=== PATIENT | male | born 1970 | race Caucasian/White ===

== ENCOUNTER 2024-02-08 21:52 | Inpatient (IN) | payer OTHER, SELFPAY ==
--- NOTE | ~2024-02-08 | US_ITS ---
EXAMINATION: US hip asp inj w image LT DATE: 02/09/2024 12:17 INDICATION: Left hip effusion. TECHNIQUE: The procedure including the risks, benefits, and alternatives was discussed with the patie nt. Risks discussed included bleeding and infection. The patient understood the risks and agreed to p roceed. The skin overlying the left hip was prepped and draped in usual sterile fashion. Anesthetic was administered with 1% lidocaine subcutaneously. An 18 gauge spinal needle was inserted into the l eft hip joint under continuous sonographic guidance, a fluid was aspirated. The entry site was cleane d and dressed. There were no immediate complications. FINDINGS: Ultrasound images demonstrate the needle in the left hip joint. IMPRESSION: 1. Ultrasound-guided needle aspiration of the left hip yielding 4 mL opaque, geronimo-red fluid. Reviewed, dictated and finalized at location A. IMPRESSION: 1. Ultrasound-guided needle aspiration of the left hip yielding 4 mL opaque, ta n-red fluid.
--- NOTE | ~2024-02-08 | CT_ITS ---
EXAMINATION: CT hip LT w con DATE: 02/10/2024 10:01 INDICATION: Left hip abscess. TECHNIQUE: Computed tomography (CT) of the left hip was performed with 100 mL Omnipaque 350 intraveno us contrast. Automated exposure control and iterative reconstruction technique were employed. The dos e-length product was 824.14 mGy-cm. COMPARISON: Left hip radiographs 02/09/2024 FINDINGS: There is a healed fracture of proximal left femur with internal fixation with antegrade int ramedullary karen and femoral head/neck screw. There are extensive erosions of the left hip joint with pathologic fracture of the medial wall of left acetabulum. There is a left hip joint effusion. Pocket s of fluid with calcifications are noted in the soft tissues and muscles around the left hip includin g the left gluteus medius and gluteus minimus muscles, left iliopsoas muscle, and left hip flexor mus cles. IMPRESSION: 1. Septic arthritis of the left hip with pathologic fracture of medial wall of left acetabulum. 2. Myositis and abscesses involving many of the muscles around the left hip. Reviewed, dictated and finalized at location E.
--- NOTE | ~2024-02-08 | XR_ITS ---
EXAMINATION: XR hip LT 2V w AP pelvis DATE: 02/09/2024 11:30 INDICATION: Left hip pain. TECHNIQUE: An anteroposterior view of the pelvis on 2 radiographs and 2 views of left hip on 3 radiog raphs were obtained. COMPARISON: Left hip radiographs 01/25/2024 FINDINGS: There is an old healed fracture of proximal left femur with internal fixation with long int ramedullary karen and femoral head/neck screw. There are severe erosions at the left hip joint. There i s moderate right hip osteoarthritis. IMPRESSION: 1. Severe erosions of the left hip joint suspicious for septic arthritis. 2. Moderate right hip osteoarthritis. Reviewed, dictated and finalized at location A.
--- NOTE | ~2024-02-08 | XR_ITS ---
EXAMINATION: XR fluoroscopy no charge DATE: 02/09/2024 12:31 INDICATION: Left hip pain and arthritis. TECHNIQUE: A single fluoroscopic view of the left hip was obtained by myself. Fluoroscopy exposure ti me was 0.1 minutes. The total number of images was 1. FINDINGS: There is internal fixation of proximal left femur. There are erosions of the left hip joint . IMPRESSION: 1. Left hip arthritis suspicious for septic arthritis. The patient could not roll to the required pos ition for joint aspiration under fluoroscopy. The procedure was performed under ultrasound. Reviewed, dictated and finalized at location A. IMPRESSION: 1. Left hip arthritis suspicious for septic arthritis. The patient could not ro ll to the required position for joint aspiration under fluoroscopy. The procedu re was performed under ultrasound.
[2024-02-08 22:10] VITALS: BMI 25.5
[2024-02-08 22:11] VITALS: BP 110/69; PULSE 72; RESP 18; TEMP 36.9; O2SAT 100
--- NOTE | 2024-02-08 22:21 | ADMGEN ---
This patient, Rajat Ordoñez, was admitted to 3 [facility] Surg Room 320-01. Patient/family oriented to hospital policies and general routines including ID bracelet, bed and alarms, visiting hours, pain management, procedures, bathroom and other care routines, personal items, smoking policy, room service/diet, and visiting hours. Information on how to activate the Rapid Response Team has been discussed. Patient/Family are encouraged to report perceived risks to care and to ask questions if they do not understand what they are told or what they should do.
--- NOTE | 2024-02-08 22:42 | PM.IMHP ---
H&P: HPI History of Present Illness Date/Time: 02/08/24 22:42 Chief Complaint: leg swelling Narrative: this is a 53-year-old male with past medical history significant for tobacco dependence, alcohol dependence, chronic hyponatremia, left hip hardware malfunction, patient presents to the emergency room due to bilateral lower extremity swelling, fatigue, shortness of breath. He comes as a transfer from outside facility preliminary workup there was significant for hemoglobin of 6.6 patient is in the midst of some workup when he was found to have low hemoglobin and has been transferred to our facility for further evaluation management and treatment EXAMINATION: XR hip LT 2V w AP pelvis DATE: 02/09/2024 11:30 INDICATION: Left hip pain. TECHNIQUE: An anteroposterior view of the pelvis on 2 radiographs and 2 views of left hip on 3 radiographs were obtained. COMPARISON: Left hip radiographs 01/25/2024 FINDINGS: There is an old healed fracture of proximal left femur with internal fixation with long intramedullary karen and femoral head/neck screw. There are severe erosions at the left hip joint. There is moderate right hip osteoarthritis. IMPRESSION: 1. Severe erosions of the left hip joint suspicious for septic arthritis. 2. Moderate right hip osteoarthritis. Review of Systems Review of Systems: shortness of breath, bilateral lower extremity swelling Constitutional: Constitutional: Reports fatigue and Reports lethargy Eyes: Eyes: Denies change in vision Cardiovascular: Cardiovascular: Denies chest pain, Reports leg edema and Reports dyspnea Respiratory: Respiratory: Denies cough Gastrointestinal: Gastrointestinal: Denies abdominal pain, Denies melena, Denies hematochezia, Denies coffee ground emesis and Denies hematemesis Genitourinary: Genitourinary: Denies dysuria Musculoskeletal: Musculoskeletal: Reports arthralgias (left hip) Neurologic: Denies focal weakness and Denies Sensory deficit (Neuro) Psychiatric: Psychiatric: Reports no additional psychiatric complaints and Reports as per HPI Endocrine: Endocrine: Denies cold intolerance, Denies heat intolerance, Denies polyphagia, Denies polydipsia, Denies polyuria and Denies palpitations Hematologic/Lymphatic: Hematologic/Lymphatic: Reports no additional hematologic/lymphatic complaints and Reports as per HPI Allergic/Immunologic: Allergic/Immunologic: Reports no additional allergic/immunologic complaints and Reports as per HPI [facility] Past Medical History Medical History (Updated 02/10/24 @ 14:56 by You Bah MD) NSAID long-term use Occult blood positive stool Septic arthritis of hip Social History Social History Smoking packs per day: 1 Smoking cigarettes per day: 20.0 Years smoked: 30 Smoking pack-years: 30.00 Smoking status: Former smoker Tobacco type: cigarettes Alcohol intake: former Substance use: current Substance use type: marijuana Do You Feel Safe in your Home?: Yes Lack of Transportation: No Lack of Food: Never True Current Housing: I Have Housing Concerned About Future Housing: No Difficulty Paying Gas/Electric Bills: No Difficulty Paying for Meds: No Currently Unemployed: No Education: Trade/Vocational Certificate Difficulty w/ Childcare or Family Care: No Spiritual care concerns: No Meds Home Medications and Allergies Home Medications Medication Instructions Recorded Confirmed Type acetaminophen 325 mg capsule 650 mg PO Q6H PRN Pain (Scale 02/08/24 02/08/24 History Score 1-3) albuterol sulfate 2.5 mg/3 mL 2.5 mg continuous nebulization 02/08/24 02/08/24 History (0.083 %) solution for nebulization Q4-6H PRN Shortness Of Breath Or Wheezing albuterol sulfate 90 mcg/actuation 2 puff inhalation Q4H 02/08/24 02/08/24 History aerosol inhaler citalopram 10 mg tablet 10 mg PO HS 02/08/24 02/08/24 History diclofenac sodium 75 mg 75 mg PO DAILY 02/08/24 02/08/24 History t
[2024-02-08] MEDS: MORPHINE SULFATE (*CRX) 2 MG/ML INJ IV PUSH (23:17)
[2024-02-08] MEDS: DEXTROSE 5%/0.45% SOD CHL 1,000 ML 100 ML IV CONT (23:17)
[2024-02-08] MEDS: traZODone HCL 50 MG TABLET PO (23:18)
[2024-02-08 23:21] LABS: Basophils Percent Auto 0.2 % (0.2-1.2); Eosinophils Absolute Auto 0.1 K/mm3 (0-0.3); Eosinophils Percent Auto 0.8 % (0-4.4); Hematocrit 26.2 % (42.0-52.0); Hemoglobin 8.7 g/dL (14.0-18.0); Immature Granulocyte Absolute 0.17 K/mm3 (0.00-0.031); Immature Granulocyte Percent A 1.4 % (0-0.5); Lymphocytes Absolute Auto 0.79 K/mm3 (0.9-3.2); Lymphocytes Percent Auto 6.7 % (18.3-44.2); Mean Corpuscular HGB Conc 33.2 g/dl (32-36); Mean Corpuscular Hemoglobin 30.7 pg (26-34); Mean Corpuscular Volume 92.6 fl (80-100); Monocytes Absolute Auto 1.2 K/mm3 (0.1-0.6); Monocytes Percent Auto 10.1 % (2.6-8.5); Neutrophils Absolute Auto 9.5 K/mm3 (1.3-6.7); Neutrophils Percent Auto 80.8 % (45.5-73.1); Platelet Count Result 810 k/mm3 (150-375); Red Blood Count 2.83 M/mm3 (4.6-6.20); Red Cell Distribution Width 15.9 % (11.5-14.5); White Blood Count 11.7 K/mm3 (4.5-10.0)
[2024-02-08 23:34] LABS: Anion Gap 12 mmol/L (4-12); Blood Urea Nitrogen 9 mg/dL (9-20); Calcium 7.2 mg/dL (8.4-10.2); Carbon Dioxide 20 mmol/L (22-30); Chloride 95 mmol/L (98-107); Estimated CRCL calculation 130 ml/min; Estimated Glomerular Filt Rate > 60; Glucose 117 mg/dL (65-110); Magnesium 2.5 mg/dL (1.6-2.3); Phosphorus 2.5 mg/dL (2.5-4.5); Potassium 3.7 mmol/L (3.4-5.0); Sodium 127 mmol/L (137-145)
[2024-02-08 23:39] LABS: INR 1.7; Prothrombin Time 20.7 Seconds (11.1-14.7)
[2024-02-08 23:40] LABS: Partial Thromboplastin Time 59.2 Seconds (22.3-36.8)
[2024-02-08] MEDS: CITALOPRAM HYDROBROMIDE 10 MG TABLET PO (23:45)
[2024-02-09] VITALS (8 sets, daily range): BP systolic 93–144; BP diastolic 58–73; PULSE 63–103; RESP 12–20; TEMP 36.8–37.2; O2SAT 100
--- NOTE | 2024-02-09 | ECHO_ITS ---
Patient Info Name: Rajat Ordoñez Age: 53 years : 1970 Gender: Male Ht: 71 in Wt: 183 lbs BSA: 2.05 m2 HR: 63 bpm BP: 111 / 70 mmHg Technical Quality: Good Exam Date: 02/09/2024 9:51 AM Exam Location: Echo Lab Patient Status: Inpatient Admit Date: 02/08/2024 Staff Ordering Physician: Will Sandoval MD Sterile Processing Tech: Kameron Giron RDCS Attending Provider: iTsh Rodríguez APRN Referring Physician: Lori BLACKWOOD; Exam Type: CA echo doppler color flow Study Info Indications - edema Complete two-dimensional, color flow and Doppler transthoracic echocardiogram is performed. Summary 1. Complete two-dimensional, color flow and Doppler transthoracic echocardiogram is performed. 2. Left ventricular chamber dimension is normal. 3. Left ventricular systolic function is normal, estimated at 55-60%. 4. The left ventricular diastolic function is grade I diastolic dysfunction. 5. E/e' 7 is not elevated. 6. Left atrial chamber dimension is mildly enlarged. 7. There is trace tricuspid valve regurgitation. 8. No pulmonary hypertension, estimated pulmonary arterial systolic pressure is 19 mmHg. 9. Normal inferior vena cava with >50% collapse upon inspiration consistent with elevated right atrial pressure, 10 mmHg. Left Ventricle E/e' 7 is not elevated. Left ventricular chamber dimension is normal. Left ventricular systolic function is normal, estimated at 55-60%. The left ventricular diastolic function is grade I diastolic dysfunction. Right Ventricle Right ventricular systolic function is normal and with normal TAPSE 2.6 cm. Right ventricular chamber dimension is normal. Left Atria Left atrial chamber dimension is mildly enlarged. Right Atria Right atrial chamber dimension is normal. Aortic Valve The aortic valve is trileaflet. There is no aortic valve stenosis. There is no aortic valve regurgitation. Pulmonic Valve There is no pulmonic regurgitation. Mitral Valve There is no mitral valve stenosis. There is no mitral valve regurgitation. Tricuspid Valve There is trace tricuspid valve regurgitation. No pulmonary hypertension, estimated pulmonary arterial systolic pressure is 19 mmHg. Pericardium/Pleural There is no pericardial effusion. Inferior Vena Cava Normal inferior vena cava with >50% collapse upon inspiration consistent with elevated right atrial pressure, 10 mmHg. Aorta The aortic root size at the sinus of Valsalva is normal. Left Ventricular Outflow Tract Name Value Normal LVOT 2D LVOT Diameter 2.1 cm LVOT Doppler LVOT Peak Gradient 8 mmHg LVOT Mean Gradient 5 mmHg LVOT VTI 30 cm LVOT VTI/AV VTI Ratio 1.1 LVOT Stroke Volume 103 ml LVOT CO 8.2 l/min LVOT CI 4.0 l/min/m2 Pulmonic Valve Name Value Normal PV Doppler
[2024-02-09] MEDS: oxyCODONE/ACETAMINOPHEN (*CRX) 5-325 MG TABLET 1 TABLET PO ×2 (02:01→12:22)
[2024-02-09] MEDS: TIZANIDINE HCL 4 MG TABLET PO ×3 (02:07→20:13)
[2024-02-09] MEDS: SODIUM CHLORIDE 1 GM TABLET PO ×3 (08:23→17:22)
[2024-02-09] MEDS: MORPHINE SULFATE (*CRX) 2 MG/ML INJ IV PUSH ×2 (08:32→14:05)
[2024-02-09 09:03] LABS: Basophils Percent Auto 0.3 % (0.2-1.2); Eosinophils Absolute Auto 0.1 K/mm3 (0-0.3); Eosinophils Percent Auto 0.8 % (0-4.4); Hematocrit 28.3 % (42.0-52.0); Hemoglobin 9.2 g/dL (14.0-18.0); Immature Granulocyte Absolute 0.13 K/mm3 (0.00-0.031); Immature Granulocyte Percent A 1.2 % (0-0.5); Lymphocytes Percent Auto 6.7 % (18.3-44.2); Mean Corpuscular HGB Conc 32.5 g/dl (32-36); Mean Corpuscular Hemoglobin 30.6 pg (26-34); Mean Platelet Volume 9.5 fl (7.4-10.4); Monocytes Absolute Auto 1.2 K/mm3 (0.1-0.6); Monocytes Percent Auto 11.2 % (2.6-8.5); Neutrophils Absolute Auto 8.3 K/mm3 (1.3-6.7); Neutrophils Percent Auto 79.8 % (45.5-73.1); Nucleated Red Blood Cells Perc 0.2 % (0.0-0.2); Platelet Count Result 834 k/mm3 (150-375); Red Blood Count 3.01 M/mm3 (4.6-6.20); Red Cell Distribution Width 15.9 % (11.5-14.5); White Blood Count 10.4 K/mm3 (4.5-10.0)
--- NOTE | 2024-02-09 09:16 | PM.CNOR ---
Assessment and Plan Assessment and plan (1) Osteoarthritis of left hip: Qualifiers: Osteoarthritis type: post-traumatic Qualified Code(s): M16.52 - Unilateral post-traumatic osteoarthritis, left hip Code(s): M16.12 - Unilateral primary osteoarthritis, left hip Status: Acute Assessment and Plan: Patient is a 53-year-old gentleman who was admitted for presumed GI bleed. The hospitalist service has admitted the patient and GI has been consulted. He was found to have a hemoglobin of 6.6 at the [facility] and was transferred to [facility] with a have I services available. Orthopedics was consulted for hardware failure problems with left hip. I located a disc with images in his chart which I brought down to x-ray be loaded onto PACS. I have been able to review the images that were loaded up on PACS. He had an intertrochanteric left hip fracture with subtrochanteric extension that was comminuted and displaced and appears well healed. There is a low trochanteric nail without distal interlocking stabilizing the fracture. 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 As such, the sliding hip screw is protruding significantly through the superior femoral head and is associated with erosive lucency in the superior acetabulum. Also, Infection would also be a consideration. He states that he has been having to use a walker this past month because the pain has become so severe. He has had no change in his left hips symptoms during this past 1 month. However, his left leg started swelling severely 1 week ago. He has duplex ultrasound was somewhat limited due to the swelling it says in the report but showed no evidence of DVT I see this as being reordered here. He has [employer] of [facility] a for insurance and he was evaluated at [facility] this past month and was scheduled for surgery to remove the karen and perform a hip replacement but he was notified last week that they do not take his insurance. He has also been evaluated at [facility] and they said that they would take his insurance and performed the surgery but that he would have to wait 1 year and that is why he subsequently went to the orthopedic surgeon at [facility]. Patient does have a new appointment to be seen by the [facility] specialist March 14. On exam he has painful limited range of motion of his left hip. There is no redness or swelling about the left hip the skin looks normal. He has a 3 in longitudinal incision extending proximal to the greater trochanter. He has pronounced diffuse edema in the left lower extremity markedly asymmetric compared to the right. I have discussed with him that total hip replacement with removal of femoral intramedullary karen is a more complex reconstruction. I utilized the direct anterior basement and I have wholesale agronomist with posterior approach hip replacement which is the approach that would best in cases such as his. Additionally, these cases are more complicated and usually utilize revision implants. As such I have recommended that he follow at [facility] with his previously scheduled appointment. Patient has been taking diclofenac 75 mg twice daily for his arthritis pain which may be the cause of his suspected GI bleeding. He does not drink alcohol smoke cigarettes anymore. His hemoglobin now is up to 9.2 white count 10.4 platelets [id number]. Patient will need medication to control his pain greater since he is no longer able to take the diclofenac. Has been taking Percocet as well. Use of the walker will be important for him as a means of reducing his hip pain. 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 We can ask physical therapy to work with him today. I have discomfort reports and a small him low in his chart state the following: Bilateral lower extremity
[2024-02-09 09:17] LABS: Alanine Aminotransferase 9 U/L (6-50); Albumin Level 3.3 g/dL (3.5-5.1); Alkaline Phosphatase 82 U/L (38-126); Anion Gap 10 mmol/L (4-12); Aspartate Amino Transferase 21 U/L (17-59); Bilirubin,Total 0.7 mg/dL (0.2-1.3); Blood Urea Nitrogen 8 mg/dL (9-20); Calcium 7.2 mg/dL (8.4-10.2); Carbon Dioxide 21 mmol/L (22-30); Chloride 97 mmol/L (98-107); Estimated CRCL calculation 154 ml/min; Estimated Glomerular Filt Rate > 60; Glucose 120 mg/dL (65-110); Potassium 3.9 mmol/L (3.4-5.0); Sodium 128 mmol/L (137-145)
[2024-02-09 11:10] LABS: CRP 16.8 mg/dL (<1.0)
[2024-02-09 11:20] LABS: Erythrocyte Sedimentation Rate > 140 mm/hr (0-20)
[2024-02-09 12:35] LABS: Procalcitonin 2.3 ng/mL
[2024-02-09 13:17] LABS: Appearance Synovial Fluid Turbid (Clear); Color Synovial Fluid Red (Colorless); Source Synovial Fluid Synovial fluid
[2024-02-09 13:18] LABS: Lymphocytes Synovial Fluid 4 %; Monocytes Synovial Fluid 1 %; Neutrophils Synovial Fluid 95 % (0-25)
[2024-02-09 13:22] LABS: Crystals Synovial Fluid None Seen (None Seen)
--- NOTE | 2024-02-09 13:51 | WPDGICN ---
Assessment and Plan Assessment and plan (1) Anemia, blood loss: Code(s): D50.0 - Iron deficiency anemia secondary to blood loss (chronic) Status: Acute Assessment and Plan: will assess with egd on Sunday probably PUD- he has been taking diclofenac daily for some time because hip pain never had scopes can not get colonoscopy at this point because won't be able to lay in left side, this can be arranged later after his hip is taken care of (2) Occult blood positive stool: Code(s): R19.5 - Other fecal abnormalities Status: Acute Assessment and Plan: egd protonix monitor for signs of bleeding (3) Septic arthritis of hip: Code(s): M00.9 - Pyogenic arthritis, unspecified Status: Acute Assessment and Plan: s/p aspiration by ortho (4) Generalized weakness: Code(s): R53.1 - Weakness Status: Acute (5) Hardware failure: Status: Acute (6) NSAID long-term use: Code(s): Z79.1 - senior living (current) use of non-steroidal anti-inflammatories (NSAID) Status: Acute GI Consult Note Consult date/time: 02/09/24 13:51 Reason for consult: symptomatic anemia HPI: Rajat Ordoñez is a 53 year old male with medical history significant for tobacco dependence, alcohol dependence, chronic hyponatremia, left hip hardware malfunction who went to another ER after noted more edema in his legs. Also has been complaining of fatigue, preliminary workup there was significant for hemoglobin of 6.6 and also had occult blood in stools- patient says that had dark stools but has been taking iron, never had scopes. I received a call from ER physician and he was transferred to our facility because they did not have GI service. Hb up to 9. Also noted to have possible left hip septic arthritis and is supposed to follow-up with ortho at [facility]. Review of Systems Constitutional: Constitutional: Reports fatigue Eyes: Eyes: Denies blurry vision ENT: Reports Normal hearing present Cardiovascular: Cardiovascular: Denies chest pain Respiratory: Respiratory: Denies cough Gastrointestinal: Gastrointestinal: Denies abdominal pain Genitourinary: Genitourinary: Denies dysuria Musculoskeletal: Musculoskeletal: Reports arthralgias (hip) Integumentary/Breasts: Skin/Breast: Denies rash Neurologic: Denies Abnormal speech present Psychiatric: Psychiatric: Denies behavioral changes [facility] Past Medical History Medical History (Updated 02/09/24 @ 13:56 by Stephen Gerard MD) NSAID long-term use Occult blood positive stool Septic arthritis of hip Social History Social History Smoking packs per day: 1 Smoking cigarettes per day: 20.0 Years smoked: 30 Smoking pack-years: 30.00 Smoking status: Former smoker Tobacco type: cigarettes Alcohol intake: former Substance use: current Substance use type: marijuana Do You Feel Safe in your Home?: Yes Lack of Transportation: No Lack of Food: Never True Current Housing: I Have Housing Concerned About Future Housing: No Difficulty Paying Gas/Electric Bills: No Difficulty Paying for Meds: No Currently Unemployed: No Education: Trade/Vocational Certificate Difficulty w/ Childcare or Family Care: No Spiritual care concerns: No Meds Home Medications and Allergies Home Medications Medication Instructions Recorded Confirmed Type acetaminophen 325 mg capsule 650 mg PO Q6H PRN Pain (Scale 02/08/24 02/08/24 History Score 1-3) albuterol sulfate 2.5 mg/3 mL 2.5 mg continuous nebulization 02/08/24 02/08/24 History (0.083 %) solution for nebulization Q4-6H PRN Shortness Of Breath Or Wheezing albuterol sulfate 90 mcg/actuation 2 puff inhalation Q4H 02/08/24 02/08/24 History aerosol inhaler citalopram 10 mg tablet 10 mg PO HS 02/08/24 02/08/24 History diclofenac sodium 75 mg 75 mg PO DAILY 02/08/24 02/08/24 History tablet,delayed release ergocalciferol (vitamin D2) 1,2
[2024-02-09] MEDS: FUROSEMIDE INJ 40 MG/4 ML VIAL IV PUSH (14:05)
--- NOTE | 2024-02-09 14:13 | PM.TDS ---
Transfer Discharge Sum: Prov Provider Date of admission: 02/08/24 21:52 Primary care physician: UNKNOWN,DOCTOR Admitting clinician: Jazmin Velázquez MD Consults: 02/08/24 Consult to Physician Routine Comment: Consulting Provider: Stephen Gerard outbound call center representative/MD group to consult: GI Reason for consultation: anemia Has provider been notified: Yes 02/09/24 Consult to Physician Routine Comment: spoke to dr @[phone] (,) Consulting Provider: You Bah outbound call center representative/ group to consult: Ortho Reason for consultation: Left hip hardware failure Has provider been notified: Yes Attending physician on discharge: Tish Rodríguez Discharging clinician: Tish Rodríguez Anticipated date of transfer: 02/09/24 Receiving physician/facility: [facility] DS: Admitting Diagnosis Discharge Date 02/10/24 Admitting Diagnosis Blood loss anemia ETOH dependence Tobacco dependence Chronic pain Hyponatremia Generalized weakness Hardware failure DS: Discharge Diagnosis Discharge Diagnosis (1) Left hip prosthetic joint infection: Qualifiers: Encounter type: initial encounter Qualified Code(s): T84.52XA - Infection and inflammatory reaction due to internal left hip prosthesis, initial encounter Code(s): T84.52XA - Infection and inflammatory reaction due to internal left hip prosthesis, initial encounter Status: Acute (2) Hardware failure: Status: Acute (3) Anemia, blood loss: Code(s): D50.0 - Iron deficiency anemia secondary to blood loss (chronic) Status: Acute (4) Hyponatremia syndrome: Code(s): E87.1 - Hypo-osmolality and hyponatremia Status: Acute Transfer Discharge Sum: Med Medications Active and Home Medications: Home Medications acetaminophen 325 mg capsule 650 mg PO Q6H PRN Pain (Scale Score 1-3) 02/08/24 [History Confirmed 02/08/24] albuterol sulfate 2.5 mg/3 mL (0.083 %) solution for nebulization 2.5 mg continuous nebulization Q4-6H PRN Shortness Of Breath Or Wheezing 02/08/24 [History Confirmed 02/08/24] albuterol sulfate 90 mcg/actuation aerosol inhaler 2 puff inhalation Q4H 02/08/24 [History Confirmed 02/08/24] citalopram 10 mg tablet 10 mg PO HS 02/08/24 [History Confirmed 02/08/24] diclofenac sodium 75 mg tablet,delayed release 75 mg PO DAILY 02/08/24 [History Confirmed 02/08/24] ergocalciferol (vitamin D2) 1,250 mcg (50,000 unit) capsule 1,250 mcg PO WEEKLY 02/08/24 [History Confirmed 02/08/24] montelukast 10 mg tablet 10 mg PO DAILY 02/08/24 [History Confirmed 02/08/24] omeprazole 20 mg capsule,delayed release 20 mg PO HS 02/08/24 [History Confirmed 02/08/24] oxycodone-acetaminophen 5 mg-325 mg tablet 1 tablet PO Q8H PRN Pain (Scale Score 4-6) 02/08/24 [History Confirmed 02/08/24] polysaccharide iron complex 150 mg iron capsule (Ferrex) 150 mg PO DAILY 02/08/24 [History Confirmed 02/08/24] sodium chloride 1,000 mg soluble tablet 1,000 mg PO TID 02/08/24 [History Confirmed 02/08/24] tizanidine 4 mg tablet 4 mg PO Q8H PRN Muscle Spasm 02/08/24 [History Confirmed 02/08/24] trazodone 50 mg tablet 50 mg PO HS 02/08/24 [History Confirmed 02/08/24] Active Medications Albuterol (Albuterol Sulfate Neb 2.5 Mg/3 Ml Inh) 2.5 mg INHALATION Q4-6H PRN PRN Reason: Shortness Of Breath Or Wheezing Citalopram Hydrobromide (Citalopram Hydrobromide 10 Mg Tablet) 10 mg PO [facility] Last Admin: 02/08/24 23:45 Dose: 10 mg Furosemide (Furosemide Inj 40 Mg/4 Ml Vial) 40 mg IV PUSH BID NADIA Last Admin: 02/09/24 14:05 Dose: 40 mg Ceftriaxone Sodium (Rocephin 2 Gm/Ns 100 Ml) 2 gm in 100 mls @ 200 mls/hr IVPB Q24H NADIA Vancomycin HCl (Vancomycin 2,000 Mg/Ns 500 Ml) 2,000 mg in 500 mls @ 250 mls/hr IVPB ONCE ONE Stop: 02/09/24 15:43 Vancomycin HCl (Vancomycin 1,500 Mg/Ns 500 Ml) 1,500 mg in 500 mls @ 250 mls/hr IVPB Q12H NADIA Montelukast Sodium (Montelukast Sodium 10 Mg Tablet) 10 mg PO DAILY NADIA Morphine Sulfate (Morphine Sulfate (*Crx) 2 Mg/Ml Inj
[2024-02-09] MEDS: VANCOMYCIN 2,000 MG/NS 500 ML 2,000 MG/500 ML BAG 250 MG IVPB (15:01)
[2024-02-09] MEDS: cefTRIAXone 2 GM/NS 100 ML 2 GM/100 ML BAG IVPB (15:02)
[2024-02-09 15:06] LABS: INR 1.9
[2024-02-09 15:08] LABS: Partial Thromboplastin Time 55.8 Seconds (22.3-36.8)
[2024-02-09 16:05] LABS: Fibrinogen 602 mg/dl (215-510)
[2024-02-09] MEDS: HYDROmorphone HCL INJ (*CRX) 1 MG/ML SYR 0.5 MG IV PUSH ×2 (17:22→21:57)
--- NOTE | 2024-02-09 18:19 | PC.NURSE ---
This patient, Rajat Ordoñez, was transferred to IMU [id number] on 02/09/24 at 1815. Personal belongings sent with patient. Report given to Jessica HYATT. Appropriate documentation sent with patient.
--- NOTE | 2024-02-09 18:35 | PC.NURSE ---
This patient, Rajat Ordoñez, was received from [[id number] ] on 02/09/24 at 1830. Patient/family oriented to unit policies and routines
--- NOTE | 2024-02-09 19:27 | PC.NURSE ---
Pt has bedrest orders in per Dr. Bah. Pt is at high risk for complications associated with his current medical complication as reviewed in Dr. Bah's note on 02/09/24. Pt has refused to lay in bed and insists on sitting edge of bed with legs dangled at bedside, stating it significantly relieves the pain. Pt educated on the risks associate with mobility and positioning, and heavily encouraged to remain in the bed. Pt states Trust me I'll go slow, I've been moving like this for weeks now . despite reinforcement of bedrest policy and importance of minimal activity, pt continues to sit with legs dangled at bedside. Pt has not been OOB at this time.
[2024-02-09] MEDS: traZODone HCL 50 MG TABLET PO (20:13)
[2024-02-09] MEDS: CITALOPRAM HYDROBROMIDE 10 MG TABLET PO (20:13)
[2024-02-09] MEDS: HYDROcodone/acetaminophen (*CRX) 10-325 MG TABLET 1 TAB PO (20:13)
[2024-02-09] MEDS: fentaNYL CITRATE INJ (*CRX) 100 MCG/2 ML VIAL 50 MCG IV PUSH (23:13)
[2024-02-10] VITALS (15 sets, daily range): BP systolic 99–160; BP diastolic 51–77; PULSE 72–108; RESP 18–20; TEMP 35.7–37.2; O2SAT 98–100
[2024-02-10] MEDS: MORPHINE SULFATE (*CRX) 30 MG TABCR PO ×2 (00:34→09:39)
[2024-02-10] MEDS: HYDROmorphone HCL INJ (*CRX) 1 MG/ML SYR IV PUSH ×7 (01:01→18:42)
[2024-02-10] MEDS: ALBUTEROL SULFATE NEB 2.5 MG/3 ML INH INHALATION (01:16)
[2024-02-10] MEDS: oxyCODONE HCL (*CRX) 5 MG TAB IR PO ×4 (03:16→15:30)
[2024-02-10] MEDS: VANCOMYCIN 1,500 MG/NS 500 ML 1,500 MG/500 ML BAG 250 MG IVPB ×2 (03:51→16:31)
[2024-02-10] MEDS: ACETAMINOPHEN 500 MG TABLET 1000 MG PO ×3 (04:27→15:31)
[2024-02-10 04:32] LABS: Basophils Percent Auto 0.2 % (0.2-1.2); Eosinophils Absolute Auto 0.1 K/mm3 (0-0.3); Eosinophils Percent Auto 0.4 % (0-4.4); Hematocrit 27.3 % (42.0-52.0); Hemoglobin 8.8 g/dL (14.0-18.0); Immature Granulocyte Absolute 0.19 K/mm3 (0.00-0.031); Immature Granulocyte Percent A 1.4 % (0-0.5); Lymphocytes Absolute Auto 0.85 K/mm3 (0.9-3.2); Lymphocytes Percent Auto 6.4 % (18.3-44.2); Mean Corpuscular HGB Conc 32.2 g/dl (32-36); Mean Corpuscular Hemoglobin 30.2 pg (26-34); Mean Corpuscular Volume 93.8 fl (80-100); Mean Platelet Volume 8.8 fl (7.4-10.4); Monocytes Absolute Auto 1.7 K/mm3 (0.1-0.6); Monocytes Percent Auto 12.7 % (2.6-8.5); Neutrophils Absolute Auto 10.4 K/mm3 (1.3-6.7); Neutrophils Percent Auto 78.9 % (45.5-73.1); Platelet Count Result 841 k/mm3 (150-375); Red Blood Count 2.91 M/mm3 (4.6-6.20); Red Cell Distribution Width 15.2 % (11.5-14.5); White Blood Count 13.2 K/mm3 (4.5-10.0)
[2024-02-10 05:17] LABS: Alanine Aminotransferase 21 U/L (6-50); Albumin Level 3.3 g/dL (3.5-5.1); Alkaline Phosphatase 126 U/L (38-126); Anion Gap 10 mmol/L (4-12); Aspartate Amino Transferase 52 U/L (17-59); Bilirubin,Total 0.7 mg/dL (0.2-1.3); Blood Urea Nitrogen 5 mg/dL (9-20); Calcium 7.1 mg/dL (8.4-10.2); Carbon Dioxide 24 mmol/L (22-30); Chloride 95 mmol/L (98-107); Estimated CRCL calculation 154 ml/min; Estimated Glomerular Filt Rate > 60; Glucose 111 mg/dL (65-110); Potassium 3.4 mmol/L (3.4-5.0); Sodium 129 mmol/L (137-145)
--- NOTE | 2024-02-10 07:50 | PM.IMPN ---
Progress Note: A&P Assessment and Plan (1) Left hip prosthetic joint infection: Qualifiers: Encounter type: initial encounter Qualified Code(s): T84.52XA - Infection and inflammatory reaction due to internal left hip prosthesis, initial encounter Code(s): T84.52XA - Infection and inflammatory reaction due to internal left hip prosthesis, initial encounter Status: Acute Assessment and Plan: 02/10/24: Hip and pelvis x-ray show severe erosions of the left hip joint suspicious for septic arthritis, moderate right hip osteoarthritis Ortho consulted and did a aspiration of the hip today. Joint aspirate was turbid in appearance and showed 95 synovial neutrophils G stain showed moderate white blood cells with few Gram-positive cocci clusters representing Staph aureus Synovial fluid culture pending Blood cultures are showing no growth to date on preliminary read White blood cell count 10.4, ESR 140, C reactive protein 16.8, procalcitonin 2.3, platelet count 834 Patient started on vancomycin and Rocephin [facility] called, see above for details. Will need Infectious Disease consult as we do not have Infectious disease at this facility. (2) Hardware failure: Status: Acute Assessment and Plan: See above (3) Anemia, blood loss: Code(s): D50.0 - Iron deficiency anemia secondary to blood loss (chronic) Status: Acute Assessment and Plan: 02/10/24: Hemoglobin at outside hospital was 6.6 and patient was given 2 units PRBC before being transferred here to [place]. Was found to be occult blood positive at [facility]. Hemoglobin 8.7 with a repeat of 9.2 GI was consulted and is recommending EGD likely on Sunday however they will be able to perform a colonoscopy as patient can not lay on the left side due to his hardware failure of the left hip Continue to trend (4) Hyponatremia syndrome: Code(s): E87.1 - Hypo-osmolality and hyponatremia Status: Acute Assessment and Plan: 02/10/24: Sodium 128 continue salt tablets Time Spent With Patient Time with patient: Greater than 35 minutes Subjective Date/time seen: 02/09/24 07:50 Interval history: Rajat Ordoñez is a 53 year old male with a significant past medical history left hip hardware malfunction, chronic hyponatremia, alcohol dependence, tobacco dependence who was a direct admit from [facility] in [place], [place] for GI bleeding, anemia with a hemoglobin of 6.6. He was occult blood positive at the outside hospital. He received 2 units of blood at [facility] in [place], [place]. Initial labs here on arrival showed a stable hemoglobin of 8.7 with a repeat of 9.2. Other significant labs showed of initial white blood count of 11.7, platelet count of 810, ESR greater than 140, sodium 128, chloride 97, bicarb 21, C reactive protein 16.8. Patient was seen by Ortho today and had an aspiration of the hip which showed 95,000 neutrophils and the appearance was turbid. Synovial joint fluid sent for Gram stain and culture and are currently pending. We also sent blood cultures x2. Patient was started on vancomycin and Rocephin. Patient also has 4+ pitting edema to both lower extremities and we did an echocardiogram which shown a normal LV systolic function with an estimated EF of 55-60%, grade 1 diastolic dysfunction. He was started on Lasix 40 mg IV b.i.d. for diuresis. At the outside hospital they also checked for DVT in bilateral lower extremity and it was negative. Hip and pelvis x-ray was done here which is showing severe erosions of the left hip joint suspicious for septic arthritis, moderate right hip osteoarthritis. Ortho was concerned that the hardware is protruding through the femoral head and tip of screw was now touching the ileo ischial line and is on the verge of intrapelvic penetration. GI also seen the patient and is recommending a colonoscopy/EGD however he is unable to lay o
[2024-02-10] MEDS: SODIUM CHLORIDE 1 GM TABLET PO ×3 (08:32→17:05)
[2024-02-10] MEDS: MONTELUKAST SODIUM 10 MG TABLET PO (08:32)
[2024-02-10] MEDS: TIZANIDINE HCL 4 MG TABLET PO ×2 (08:40→15:31)
--- NOTE | 2024-02-10 09:28 | WPDGIPROGNO ---
Progress Note: A&P Assessment and Plan (1) Anemia, blood loss: Code(s): D50.0 - Iron deficiency anemia secondary to blood loss (chronic) Status: Acute Assessment and Plan: no overt gib but use of nsaid's if patient is still here then will do EGD to assess if pud ppi for now and hold nsaid's (2) Occult blood positive stool: Code(s): R19.5 - Other fecal abnormalities Status: Acute Assessment and Plan: can not do colonoscopy, this can be arranged as outpatient (3) Septic arthritis of hip: Code(s): M00.9 - Pyogenic arthritis, unspecified Status: Acute Assessment and Plan: primary team is planning to transfer him- needs ID consult and management by ortho on iv abx (4) NSAID long-term use: Code(s): Z79.1 - detention (current) use of non-steroidal anti-inflammatories (NSAID) Status: Acute (5) Osteoarthritis of left hip: Qualifiers: Osteoarthritis type: post-traumatic Qualified Code(s): M16.52 - Unilateral post-traumatic osteoarthritis, left hip Code(s): M16.12 - Unilateral primary osteoarthritis, left hip Status: Acute Subjective Date/time seen: 02/10/24 09:28 Interval history: no sign of overt GIB, had normal BM synovial fluid with + GPC Review of Systems Review of Systems: All systems reviewed & are unremarkable except as noted in HPI and below Exam Const: General: comfortable and no acute distress HENMT: Face/Nose/Sinus: Normal nares present Eyes: General: appearance normal, both eyes and all related structures Neck: Neck: supple Resp: Auscultation: clear to auscultation bilaterally Cardio: Rate: regular rate Rhythm: regular rhythm GI: Inspection: non-distended GI Palp: Yes Soft to palpation and No Tenderness to palpation present (GI) Auscultation: normal bowel sounds Skin: General skin exam: no rashes or lesions noted Neuro: Speech: normal speech Extrem: Other: left hip discomfort Psych: Mental Status: mental status grossly normal Objective Data Vital Signs Vital Signs: Vital Signs - 24 hr 02/09/24 14:00 02/09/24 16:00 02/09/24 20:15 Temperature 98.8 F 99.0 F 99 F Pulse Rate 66 98 97 Respiratory Rate 12 16 20 Blood Pressure 93/58 L 136/58 L 144/73 H Pulse Oximetry 100 100 100 02/09/24 20:00 02/09/24 22:00 02/09/24 23:31 Temperature 98.8 F Pulse Rate 103 H 84 85 Respiratory Rate 20 Blood Pressure 136/68 Pulse Oximetry 100 02/10/24 01:19 02/10/24 01:28 02/10/24 00:00 Temperature Pulse Rate 96 98 89 Respiratory Rate 18 18 Blood Pressure Pulse Oximetry 02/10/24 02:00 02/10/24 04:59 02/10/24 04:00 Temperature 99 F Pulse Rate 108 H 101 H 98 Respiratory Rate 20 Blood Pressure 138/71 Pulse Oximetry 98 02/10/24 06:00 Temperature Pulse Rate 100 Respiratory Rate Blood Pressure Pulse Oximetry Intake/Output Intake/Output: Intake & Output 02/07/24 02/08/24 02/09/24 02/10/24 23:59 23:59 23:59 23:59 Intake Total 2420 470 Output Total 2104 900 Balance 316 -430 Meds/Results Medications: Active Medications Generic Name Dose Route Start Last Admin Trade Name Freq PRN Reason Stop Dose Admin Acetaminophen 1,000 mg 02/10/24 00:04 02/10/24 04:27 Acetaminophen 500 Mg Tablet PO 1,000 mg Q6H PRN Administration Mild Pain (1-3) or Fever Albuterol 2.5 mg 02/08/24 22:40 02/10/24 01:16 Albuterol Sulfate Neb 2.5 Mg/3 Ml Inh INHALATION 2.5 mg Q4-6H PRN Administration Shortness Of Breath Or Wheezing Citalopram Hydrobromide 10 mg 02/08/24 23:25 02/09/24 20:13 Citalopram Hydrobromide 10 Mg Tablet PO 10 mg HS NADIA Administration Furosemide 40 mg 02/09/24 13:15 02/09/24 14:05 Furosemide Inj 40 Mg/4 Ml Vial IV PUSH 40 mg BID NADIA Administration Hydromorphone HCl 1 mg 02/10/24 00:06 02/10/24 08:31 Hydromorphone Hcl Inj (*Crx) 1 Mg/Ml Syr IV PUSH 1 mg Q3H PRN Admi
[2024-02-10] MEDS: CEFEPIME 2 GM/NS 50 ML 2 GM/50 ML BAG IVPB (10:51)
[2024-02-10] MEDS: metroNIDAZOLE 500 MG TABLET PO (13:28)
--- NOTE | 2024-02-10 14:50 | PM.PNORT ---
Progress Note: A&P Assessment and Plan (1) Septic arthritis of hip: Qualifiers: Septic arthritis organism: due to unspecified organism Laterality: left Qualified Code(s): M00.9 - Pyogenic arthritis, unspecified Code(s): M00.9 - Pyogenic arthritis, unspecified Status: Acute Assessment and Plan: Patient is alert and oriented and comfortable right now sitting at side of the bed. He is in no distress but earlier this morning using quite a bit pain which is better controlled now. I reviewed with him the fact that there is strong evidence that he has a severe infection in the left hip joint which is causing bony destruction and erosive changes to the bone consistent with associated osteomyelitis. The cultures have not been reported thus far. They were probably received by [facility] early this morning and have not been reported on yet. I reviewed the CT images that were done this morning. It shows how large the cavitary defect surrounding the acetabulum as and soft tissue fluid collections consistent with periarticular abscesses. There is some fracturing of the inferior medial wall of the acetabulum. The hip screw remains in the acetabulum still and has not penetrated yet through the medial wall but is on the verge of doing so and I explained to him that this is why he is at bed rest. I explained to him that the hardware will have to be removed and the infection pockets both within the soft tissues in the bone surgically decompressed and he will require prolonged IV antibiotics to cure the infection following which hopefully a hip replacement can be performed so he has a working hip joint. I explained that it will be at least 2 or 3 months before consideration for arthroplasty as it takes a long time for the infection to be eradicated. I spoke to Dr. Nunes on the phone from [facility] a couple of hours ago and he explained to me that their department does not have access to infectious disease services at this time which would make [facility] a less favorable choice for this patient and for this reason Anne the hospitalist made contact with [facility] and they have accepted the patient and they have a bed and the nurses are working on transfer right now. Subjective Subjective Date/Time Seen: 02/10/24 14:50 Objective Data Vital Signs Vital Signs: Vital Signs - 24 hr 02/09/24 16:00 02/09/24 20:15 02/09/24 20:00 Temperature 37.2 C 37.2 C Pulse Rate 98 97 103 H Respiratory Rate 16 20 Blood Pressure 136/58 L 144/73 H Pulse Oximetry 100 100 Oxygen Delivery 02/09/24 22:00 02/09/24 23:31 02/10/24 01:19 Temperature 37.1 C Pulse Rate 84 85 96 Respiratory Rate 20 18 Blood Pressure 136/68 Pulse Oximetry 100 Oxygen Delivery 02/10/24 01:28 02/10/24 00:00 02/10/24 02:00 Temperature Pulse Rate 98 89 108 H Respiratory Rate 18 Blood Pressure Pulse Oximetry Oxygen Delivery 02/10/24 04:59 02/10/24 04:00 02/10/24 06:00 Temperature 37.2 C Pulse Rate 101 H 98 100 Respiratory Rate 20 Blood Pressure 138/71 Pulse Oximetry 98 Oxygen Delivery 02/10/24 09:55 02/10/24 11:12 02/10/24 08:00 Temperature 36.6 C 35.7 C L Pulse Rate 95 72 102 H Respiratory Rate 18 18 Blood Pressure 160/77 H 113/58 L Pulse Oximetry 100 98 Oxygen Delivery 02/10/24 12:00 02/10/24 08:00 02/10/24 12:00 Temperature Pulse Rate 86 Respiratory Rate Blood Pressure Pulse Oximetry Oxygen Delivery Room Air Room Air Intake/Output Intake/Output: Intake & Output 02/07/24 02/08/24 02/09/24 02/10/24 23:59 23:59 23:59 23:59 Intake Total 2420 1000 Output Total 2104 2750 Balance 316 -1750 Meds/Results Medications: Active Medications Generic Name Dose Route Start Last Admin Trade Name Freq PRN Reason Stop Dose Admin Acetaminophen 1,000 mg 02/10/24 00:04 02/10/24 10:38 Acetaminophen 500 Mg Tablet PO 1,000 mg Q6H PRN Administration
[2024-02-10] MEDS: FUROSEMIDE INJ 40 MG/4 ML VIAL IV PUSH (17:05)
== END 2024-02-10 18:42 | disposition short-term general hospital (02) | DRG 349 ==
LOC: ANH3MEDSUR 02-09 07:56 → ANHIMU 02-09 18:24
PROVIDERS: Orthopaedic Surgery; Admitting Provider Internal Medicine; Visit Provider Nurse Practitioner Acute Care
DX: T84.52XA Infection and inflammatory reaction due to internal left hip prosthesis, initial encounter (principal); D62 Acute posthemorrhagic anemia; E87.1 Hypo-osmolality and hyponatremia; M00.9 Pyogenic arthritis, unspecified; B95.4 Other streptococcus as the cause of diseases classified elsewhere; G89.29 Other chronic pain; M16.12 Unilateral primary osteoarthritis, left hip; R19.5 Other fecal abnormalities; F10.20 Alcohol dependence, uncomplicated; Z87.891 Personal history of nicotine dependence; Z79.1 Long term (current) use of non-steroidal anti-inflammatories (NSAID)
CPT/HCPCS: 20611; 36415; 73502; 73701; 80048; 80053; 83735; 84100; 84145; 85025; 85384; 85610; 85652; 85730; 86140; 87040; 87070; 87075; 87076; 87205; 89051; 89060; 93306; 94640; 99199; A9270; G0378; G0379; J0692; J0696; J1170; J1940; J2270; J3010; J3370; Q9967